=== PATIENT | male | born 1965 | race Caucasian/White ===

== ENCOUNTER 2025-01-03 16:01 | Emergency (ER) | payer OTHER ==
[~2025-01-03] VITALS: Ht 165.1 cm; Wt 67.1 kg
[2025-01-03 21:08] VITALS: BP 118/85; TEMP 98.2; O2SAT 99
== END 2025-01-03 21:09 | disposition home or self-care (01) ==
LOC: ER 16:15
DX: F10.129 Alcohol abuse with intoxication, unspecified (principal); Y90.9 Presence of alcohol in blood, level not specified
CPT/HCPCS: 82962-TC